=== PATIENT | female | born 1945 | race Caucasian/White ===

== ENCOUNTER 2017-04-23 17:54 | Emergency (ER) | payer MEDICARE, OTHER ==
[2017-04-23] MEDS ORDERED: Ketorolac 60 MG/2 ML SDV IM ONE (18:31)
--- NOTE | 2017-04-23 18:52 | EDM.PDOC ---
ED HPI GENERAL MEDICAL PROBLEM - General Chief Complaint: ENT Problem Stated Complaint: PT HAS EARACHE Time Seen by Provider: 04/23/17 18:15 Source of Information: Reports: Patient History Limitations: Reports: No Limitations - History of Present Illness INITIAL COMMENTS - FREE TEXT/NARRATIVE: History of present illness: 72-year-old female comes in complaining of ear ache as well as pain between her upper shoulder blades. Indicates that when she walks he feels like her bones or jarring. Patient does admit that she has had a diagnosis of osteoarthritis and this could be the cause of some of the pain Review of systems: As per history of present illness and below otherwise all systems reviewed and negative. Past medical history: As per history of present illness and as reviewed below otherwise noncontributory. Surgical history: As per history of present illness and as reviewed below otherwise noncontributory. Social history: No reported history of drug or alcohol abuse. Family history: As per history of present illness and as reviewed below otherwise noncontributory. Physical exam: HEENT: Atraumatic, normocephalic, pupils reactive, negative for conjunctival pallor or scleral icterus, mucous membranes moist, bilateral ear canals excoriated and throat clear, neck supple, nontender, trachea midline. Lungs: Clear to auscultation, breath sounds equal bilaterally, chest nontender. Heart: S1S2, regular, negative for clicks, rubs, or JVD. Abdomen: Soft, nondistended, nontender. Negative for masses or hepatosplenomegaly. Negative for costovertebral tenderness. Pelvis: Stable nontender. 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: Deferred. Rectal: Deferred. Extremities: Atraumatic, negative for cords or calf pain. Neurovascular unremarkable. Neuro: Awake, alert, oriented. Cranial nerves II through XII unremarkable. Cerebellum unremarkable. Motor and sensory unremarkable throughout. Exam nonfocal. Diagnostics: [] Therapeutics: [] Impression: [Bilateral otitis externa, back pain] Plan: [Cortisporin otic drops meloxicam, Norflex] Definitive disposition and diagnosis as appropriate pending reevaluation and review of above. Bilateral Ear Pain Score (Numeric/FACES): 7 - Related Data Allergies Allergy/AdvReac Type Severity Reaction Status Date / Time No Known Allergies Allergy Verified 04/23/17 18:21 Home Meds: Home Meds Hydrocort/Neomycin/Polymyxin B [Cortisporin Otic Soln] 10 ml .XX Q4H #1 bottle 04/23/17 [Rx] Levothyroxine 75 mcg PO ACBREAKFAST 04/23/17 [History] Lisinopril [Lisinopril] 10 mg PO DAILY 04/23/17 [History] Meloxicam 7.5 mg PO BID #30 tablet 04/23/17 [Rx] Orphenadrine [Norflex] 100 mg PO BID #28 tab.er 04/23/17 [Rx] atorvaSTATin [Lipitor] 10 mg PO DAILY 04/23/17 [History] buPROPion HCl [buPROPion HCl ER] 200 mg PO DAILY 04/23/17 [History] Past Medical History HEENT History: Reports: Impaired Vision, Otitis Media Cardiovascular History: Reports: High Cholesterol, Hypertension [employer] History: Reports: Musculoskeletal History: Reports: Fibromyalgia Endocrine/Metabolic History: Reports: Hypothyroidism Social & Family History - Family History Family Medical History: Noncontributory - Tobacco Use Smoking Status *Q: Never Smoker - Recreational Drug Use Recreational Drug Use: No ED ROS ENT - Review of Systems Review Of Systems: See Below (See history of present illness) ED EXAM, ENT - Physical Exam Exam: See Below (See history of present illness) Course - Vital Signs Last Recorded V/S: Last Vital Signs Temp 37.2 C 04/23/17 18:23 Pulse 92 04/23/17 18:23 Resp 18 04/23/17 18:23 BP 143/70 H 04/23/17 18:23 Pulse Ox 95 04/23/17 18:23 - Orders/Labs/Meds Orders: Active Orders 24 hr Category Date Time Status Orphenadrine [Norflex] Med 04/23/17 18:45 Ordered 60 mg IM Q12H Medication Orders Orphenadrine Citrate (Norflex) 60 mg IM Q12H MARY Last Admin: 04/23/17 18:41 Dose: 60 mg Meds: Medications Generic Name Dose Route Start Last Admin Trade Name Freq PRN Reason Stop Dose Admin Orphenadrine Citrate 60 mg 04/23/17 18:45 04/23/17 18:41 Norflex IM 60 mg Q12H MARY Administration Discontinued Medications Generic Name Dose Route Start Last Admin Trade Name Freq PRN Reason Stop Dose Admin Ketorolac Tromethamine 60 mg 04/23/17 18:31 04/23/17 18:40 Toradol IM 04/23/17 18:32 60 mg ONETIME ONE Administration Departure - Departure Time of Disposition: 18:51 Disposition: Home, Self-Care 01 Condition: Good Clinical Impression: Otitis externa, Back pain - Discharge Information Prescriptions: Hydrocort/Neomycin/Polymyxin B [Cortisporin Otic Soln] 10 ml .XX Q4H #1 bottle Meloxicam 7.5 mg PO BID #30 tablet Orphenadrine [Norflex] 100 mg PO BID #28 tab.er Forms: ED Department Discharge Additional Instructions: The following information is given to patients seen in the emergency department who are being discharged to home. This information is to outline your options for follow-up care. We provide all patients seen in our emergency department with a follow-up referral. The need for follow-up, as well as the timing and circumstances, are variable depending upon the specifics of your emergency department visit. If you don't have a primary care physician on staff, we will provide you with a referral. We always advise you to contact your personal physician following an emergency department visit to inform them of the circumstance of the visit and for follow-up with them and/or the need for any referrals to a consulting specialist. The emergency department will also refer you to a specialist when appropriate. This referral assures that you have the opportunity for follow-up care with a specialist. All of these measure are taken in an effort to provide you with optimal care, which includes your follow-up. Under all circumstances we always encourage you to contact your private physician who remains a resource for coordinating your care. When calling for follow-up care, please make the office aware that this follow-up is from your recent emergency room visit. If for any reason you are refused follow-up, please contact the [facility] Emergency Department at and asked to speak to the emergency department charge nurse. Take medication as directed Follow-up with PCP in 1-2 days Return to ED as needed as discussed - My Orders Last 24 Hours: My Active Orders 04/23/17 18:45 Orphenadrine [Norflex] 60 mg IM Q12H - Assessment/Plan Last 24 Hours: My Active Orders 04/23/17 18:45 Orphenadrine [Norflex] 60 mg IM Q12H
[2017-04-23 19:12] VITALS: BP 113/60
== END 2017-04-23 19:11 | disposition home or self-care (01) ==
LOC: MW.ED 17:54
DX: H60.93 Unspecified otitis externa, bilateral (principal); M54.9 Dorsalgia, unspecified; I10 Essential (primary) hypertension; E78.00 Pure hypercholesterolemia, unspecified; E03.9 Hypothyroidism, unspecified; Z79.899 Other long term (current) drug therapy
CPT/HCPCS: 96372; 99283; J1885; J2360; 99282

== ENCOUNTER 2017-06-16 12:40 | Emergency (ER) | payer MEDICARE, OTHER ==
[2017-06-16] MEDS ORDERED: Sodium Chloride 0.9% 2.5 ML Syringe FLUSH PRN (12:53)
[2017-06-16] MEDS ORDERED: Sodium Chloride 0.9% 10 ML Syringe FLUSH PRN (12:53)
[2017-06-16] MEDS ORDERED: Aspirin 81 MG Tab.Chew PO ONE (12:54)
[2017-06-16] MEDS ORDERED: Nitroglycerin 2% Oint 1 GM UD Packet TOP ONE (12:55)
--- NOTE | 2017-06-16 14:23 | CR ---
EXAMINATION: Portable chest radiograph. HISTORY: Chest pain. FINDINGS: The trachea is midline. The cardiomediastinal silhouette is within normal limits. No pulmonary infilt rates, effusions or pneumothorax. Osseous structures appear unremarkable. IMPRESSION: No acute cardiopulmonary process.
--- NOTE | 2017-06-16 14:48 | EDM.PDOC ---
ED HPI GENERAL MEDICAL PROBLEM - General Chief Complaint: Chest Pain Stated Complaint: CHEST PAIN Time Seen by Provider: 06/16/17 12:58 Source of Information: Reports: Patient History Limitations: Reports: No Limitations - History of Present Illness INITIAL COMMENTS - FREE TEXT/NARRATIVE: HISTORY AND PHYSICAL: History of present illness: Patient is a 72-year-old female that presents to the emergency room with complaints of midsternal chest pain that lasted several minutes prior to arrival. Patient points to midsternal chest and the area of pain. Pain does not radiate anywhere, denies any shortness of breath, diaphoresis, or headache. 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 Upon arrival patient has no chest pain and is asymptomatic. Reports that she has a paint formulator in [place] with the most recent visit being approximately a year ago for an echocardiogram. She reports this visit was due to a "leaky valve" and was this result is normal and to follow-up later this year for reevaluation. Denies any past history of AL or stent placement. Past medical history of hypertension, hypothyroidism and anxiety. 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 States "I feel like this could be just anxiety and worrying too much". Review of systems: As per history of present illness and below otherwise all systems reviewed and negative. Past medical history: As per history of present illness and as reviewed below otherwise noncontributory. Surgical history: As per history of present illness and as reviewed below otherwise noncontributory. Social history: No reported history of drug or alcohol abuse. Family history: As per history of present illness and as reviewed below otherwise noncontributory. Physical exam: Gen.: Nontoxic appearing 72-year-old female. Able to speak in full sentences without shortness of breath. Answers questions appropriately. Alert and oriented 3 HEENT: Atraumatic, normocephalic, pupils reactive, negative for conjunctival pallor or scleral icterus, mucous membranes moist, throat clear, neck supple, nontender, trachea midline. Lungs: Clear to auscultation, breath sounds equal bilaterally, chest nontender. Heart: S1S2, regular, negative for clicks, rubs, or JVD. Abdomen: Soft, nondistended, nontender. Negative for masses or hepatosplenomegaly. Negative for costovertebral tenderness. Pelvis: Stable nontender. 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: Deferred. Rectal: Deferred. Extremities: Atraumatic, negative for cords or calf pain. Neurovascular unremarkable. Neuro: Awake, alert, oriented. Cranial nerves II through XII unremarkable. Cerebellum unremarkable. Motor and sensory unremarkable throughout. Exam nonfocal. 1440- Dr. Hernandez has agreed to admit for observation with telemetry. Patient is agreeable to admission. 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 Chest pain Definitive disposition and diagnosis as appropriate pending reevaluation and review of above. Onset: Today Onset Date: 06/16/17 Location: Reports: Chest (Currently pain-free) Improves with: Reports: None Worsens with: Reports: None Associated Symptoms: Reports: No Other Symptoms Middle Chest Pain Score (Numeric/FACES): 2 - Related Data Allergies Allergy/AdvReac Type Severity Reaction Status Date / Time No Known Allergies Allergy Verified 06/16/17 12:50 Home Meds: Home Meds Hydrocort/Neomycin/Polymyxin B [Cortisporin Otic Soln] 10 ml .XX Q4H #1 bottle 04/23/17 [Rx] Levothyroxine 75 mcg PO ACBREAKFAST 04/23/17 [History] Lisinopril [Lisinopril] 10 mg PO DAILY 04/23/17 [History] buPROPion HCl [buPROPion HCl ER] 200 mg PO DAILY 04/23/17 [History] atorvaSTATin Calcium [Atorvastatin Calcium] 20 mg PO DAILY 06/16/17 [History] Past Medical History HEENT History: Reports: Impaired Vision, Otitis Media Cardiovascular History: Reports: High Cholesterol, Hypertension [employer] History: Reports: Musculoskeletal History: Reports: Fibromyalgia Endocrine/Metabolic History: Reports: Hypothyroidism Social & Family History - Family History Family Medical History: Noncontributory - Tobacco Use Smoking Status *Q: Never Smoker - Caffeine Use Caffeine Use: Reports: Soda - Recreational Drug Use Recreational Drug Use: No ED ROS GENERAL - Review of Systems Review Of Systems: See Below ED EXAM, GENERAL - Physical Exam Exam: See Below (See dictation) EKG INTERPRETATION EKG Date: 06/16/17 Rhythm: NSR Comparison: NA - No Prior EKG Course - Vital Signs Last Recorded V/S: Last Vital Signs Temp 36.2 C 06/16/17 12:45 Pulse 99 06/16/17 14:31 Resp 16 06/16/17 13:30 BP 140/81 06/16/17 13:30 Pulse Ox 96 06/16/17 13:30 - Orders/Labs/Meds Orders: Active Orders 24 hr Category Date Time Status Patient Status [ADT] Stat ADT 06/16/17 14:40 Ordered Cardiac Monitoring [RC] . DIRECTED Care 06/16/17 12:53 Active EKG Documentation Completion [RC] STAT Care 06/16/17 12:53 Active Oxygen Therapy, ED [RC] ASDIRECTED Care 06/16/17 12:53 Active Sodium Chloride 0.9% [Saline Flush] Med 06/16/17 12:53 Active 10 ml FLUSH ASDIRECTED PRN Sodium Chloride 0.9% [Saline Flush] Med 06/16/17 12:53 Active 2.5 ml FLUSH ASDIRECTED PRN Saline Lock Insert [OM.PC] Stat Oth 06/16/17 12:53 Ordered Medication Orders Sodium Chloride (Saline Flush) 10 ml FLUSH ASDIRECTED PRN PRN Reason: Keep Vein Open Last Admin: 06/16/17 13:13 Dose: 10 ml Sodium Chloride (Saline Flush) 2.5 ml FLUSH ASDIRECTED PRN PRN Reason: Keep Vein Open Last Admin: 06/16/17 13:50 Dose: 2.5 ml Labs: Laboratory Tests 06/16/17 06/16/17 06/16/17 Range/Units 13:06 13:06 13:06 WBC 7.01 (4.0-11.0) K/uL RBC 4.29 L (4.30-5.90) M/uL Hgb 12.6 (12.0-16.0) g/dL Hct 38.2 (36.0-46.0) % MCV 89.0 (80.0-98.0) fL MCH 29.4 (27.0-32.0) pg MCHC 33.0 (31.0-37.0) g/dL RDW Std Deviation 45.5 (28.0-62.0) fl RDW Coeff of Chitra 14 (11.0-15.0) % Plt Count 210 (150-400) K/uL MPV 9.00 (7.40-12.00) fL Neut % (Auto) 60.4 (48.0-80.0) % Lymph % (Auto) 27.0 (16.0-40.0) % [place] % (Auto) 7.4 (0.0-15.0) % Eos % (Auto) 4.9 (0.0-7.0) % Baso % (Auto) 0.3 (0.0-1.5) % Neut # (Auto) 4.2 (1.4-5.7) K/uL Lymph # (Auto) 1.9 (0.6-2.4) K/uL [place] # (Auto) 0.5 (0.0-0.8) K/uL Eos # (Auto) 0.3 (0.0-0.7) K/uL Baso # (Auto) 0.0 (0.0-0.1) K/uL Nucleated RBC % 0.0 /100WBC Nucleated RBCs # 0 K/uL Sodium 141 (136-146) mmol/L Potassium 4.3 (3.5-5.1) mmol/L Chloride 109 (98-110) mmol/L Carbon Dioxide 24 (21-31) mmol/L BUN 21 (6.0-23.0) mg/dL Creatinine 1.1 (0.6-1.5) mg/dL Est Cr Clr Drug Dosing 39.92 mL/min Estimated GFR (MDRD) 48.8 ml/min Glucose 91 (60-110) mg/dL Calcium 9.6 (8.8-10.8) mg/dL Total Bilirubin 0.6 (0.1-1.5) mg/dL AST 17 (5-40) IU/L ALT 20 (8-54) IU/L Alkaline Phosphatase 98 (40-150) Troponin I < 0.10 (0.0-0.29) NG/ML Total Protein 7.3 (6.0-8.0) g/dL Albumin 4.1 (3.4-4.8) g/dL Globulin 3.2 (2.0-3.5) g/dL Albumin/Globulin Ratio 1.3 (1.3-2.8) TSH 3rd Generation 0.80 (0.47-5.0) uIU/mL Meds: Medications Generic Name Dose Route Start Last Admin Trade Name Freq PRN Reason Stop Dose Admin Sodium Chloride 10 ml 06/16/17 12:53 06/16/17 13:13 Saline Flush FLUSH 10 ml ASDIRECTED PRN Administration Keep Vein Open Sodium Chloride 2.5 ml 06/16/17 12:53 06/16/17 13:50 Saline Flush FLUSH 2.5 ml ASDIRECTED PRN Administration Keep Vein Open Discontinued Medications Generic Name Dose Route Start Last Admin Trade Name Freq PRN Reason Stop Dose Admin Aspirin 324 mg 06/16/17 12:54 06/16/17 13:11 Aspirin PO 06/16/17 12:55 324 mg ONETIME ONE Administration Nitroglycerin 1 gm 06/16/17 12:55 06/16/17 13:13 Nitro-Bid 2% TOP 06/16/17 12:56 1 gm ONETIME ONE Administration Departure - Departure Time of Disposition: 14:49 Disposition: Refer to Observation Condition: Good Clinical Impression: Chest pain Qualifiers: Chest pain type: unspecified Qualified Code(s): R07.9 - Chest pain, unspecified Referrals: PCP,None [Primary Care Provider] - Forms: ED Department Discharge - My Orders Last 24 Hours: My Active Orders 06/16/17 12:53 Cardiac Monitoring [RC] . DIRECTED EKG Documentation Completion [RC] STAT Oxygen Therapy, ED [RC] ASDIRECTED Sodium Chloride 0.9% [Saline Flush] 10 ml FLUSH ASDIRECTED PRN Sodium Chloride 0.9% [Saline Flush] 2.5 ml FLUSH ASDIRECTED PRN Saline Lock Insert [OM.PC] Stat 06/16/17 14:40 Patient Status [ADT] Stat - Assessment/Plan Last 24 Hours: My Active Orders 06/16/17 12:53 Cardiac Monitoring [RC] . DIRECTED EKG Documentation Completion [RC] STAT Oxygen Therapy, ED [RC] ASDIRECTED Sodium Chloride 0.9% [Saline Flush] 10 ml FLUSH ASDIRECTED PRN Sodium Chloride 0.9% [Saline Flush] 2.5 ml FLUSH ASDIRECTED PRN Saline Lock Insert [OM.PC] Stat 06/16/17 14:40 Patient Status [ADT] Stat
[2017-06-16 14:50] VITALS: BP 120/97
== END 2017-06-16 15:20 | disposition left against medical advice (07) ==
LOC: MW.ED 12:40
DX: R07.2 Precordial pain (principal); I10 Essential (primary) hypertension; E78.00 Pure hypercholesterolemia, unspecified; E03.9 Hypothyroidism, unspecified; Z79.899 Other long term (current) drug therapy
CPT/HCPCS: 36415; 71010; 80053; 84443; 84484; 85025; 93005; 99285; A9270; 99284

== ENCOUNTER 2017-11-29 00:34 | Emergency (ER) | payer MEDICARE, OTHER ==
[2017-11-29] MEDS ORDERED: Ketorolac 60 MG/2 ML SDV IM ONE (00:51)
--- NOTE | 2017-11-29 00:54 | EDM.PDOC ---
ED HPI GENERAL MEDICAL PROBLEM - General Chief Complaint: General Stated Complaint: BODY ACHES, SORE THROAT, FLU SYMPTOMS Time Seen by Provider: 11/29/17 00:45 - History of Present Illness INITIAL COMMENTS - FREE TEXT/NARRATIVE: HISTORY AND PHYSICAL: History of present illness: The patient is a 72-year-old female with a history of hypertension hypercholesterolemia and thyroid disease who follows at [facility] with Dr. Kade Parker and presents with a several day history of low-grade fever harsh cough occasionally productive of phlegm sore throat diffuse body aches and malaise. The patient has not had abdominal pain vomiting or diarrhea and she's been taking fluids. Patient has chronic issues with her left ear and has some pain there has been no drainage. The patient that she did not get her flu shot this year and she is around her grandchildren who have had illnesses on and off over the last several days to weeks. The patient has used [id number] ibuprofen. The patient is not a smoker and has no known pulmonary disease. Her temperatures at home have been very low-grade. She also says that she is having nasal drainage and congestion and she uses a Netti pot for that Review of systems: As per history of present illness and below otherwise all systems reviewed and negative. Past medical history: As per history of present illness and as reviewed below otherwise noncontributory. Surgical history: As per history of present illness and as reviewed below otherwise noncontributory. Social history: No reported history of drug or alcohol abuse. Family history: As per history of present illness and as reviewed below otherwise noncontributory. Physical exam: Gen.: Well-developed well-nourished female who is speaking without breathlessness and does have a harsh cough in the ER. HEENT: Atraumatic, normocephalic, pupils reactive, negative for conjunctival pallor or scleral icterus, mucous membranes moist, throat clear and there is no oropharyngeal erythema, there is no cervical adenopathy or nuchal rigidity,, neck supple, nontender, trachea midline. TMs are normal bilaterally with good light reflexes but the left TM does have an increased area of vascularity without bulging or fluid. Lungs: Clear to auscultation, breath sounds equal bilaterally, chest nontender. There is no work or breathing stridor or wheezing Heart: S1S2, regular rate and rhythm no overt murmurs Abdomen: Soft, nondistended, nontender. NABS. Pelvis: Deferred 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: Deferred. Rectal: Deferred. Extremities: Atraumatic, negative for cords or calf pain. Neurovascular unremarkable. Neuro: Awake, alert, oriented. Cranial nerves II through XII unremarkable. Cerebellum unremarkable. Motor and sensory unremarkable throughout. Exam nonfocal. Diagnostics: CBC CMP rapid strep influenza lactic acid chest x-ray Therapeutics: Toradol I discussed all testing results with the patient and have advised over-the- counter Tylenol and ibuprofen for body aches and fevers, pushing hydration, over -the-counter Benadryl/Claritin/Kimi for sinus congestion and I will prescribe Phenergan with codeine for cough. I will also give her a Z-Keegan both via [employer] I have also stressed the importance of follow-up with her provider in the clinic, [facility]. Impression: Upper respiratory tract infection/pharyngitis Definitive disposition and diagnosis as appropriate pending reevaluation and review of above. general Pain Score (Numeric/FACES): 9 - Related Data Allergies Allergy/AdvReac Type Severity Reaction Status Date / Time No Known Allergies Allergy Verified 11/29/17 00:47 Home Meds: Home Meds Hydrocort/Neomycin/Polymyxin B [Cortisporin Otic Soln] 10 ml .XX Q4H #1 bottle 04/23/17 [Rx] Levothyroxine 75 mcg PO ACBREAKFAST 04/23/17 [History] Lisinopril [Lisinopril] 10 mg PO DAILY 04/23/17 [History] buPROPion HCl [buPROPion HCl ER] 200 mg PO DAILY 04/23/17 [History] atorvaSTATin Calcium [Atorvastatin Calcium] 20 mg PO DAILY 06/16/17 [History] Past Medical History HEENT History: Reports: Impaired Vision, Otitis Media Cardiovascular History: Reports: High Cholesterol, 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 ED EXAM, GENERAL - Physical Exam Exam: See Below (See dictation) Course - Vital Signs Last Recorded V/S: Last Vital Signs Temp 37.4 C 11/29/17 00:47 Pulse 95 11/29/17 00:47 Resp 16 11/29/17 00:47 BP 108/78 11/29/17 00:47 Pulse Ox 939 H 11/29/17 00:47 - Orders/Labs/Meds Orders: Active Orders 24 hr Category Date Time Status Chest 2V [CR] Stat Exams 11/29/17 00:51 Taken CULTURE STREP A CONFIRMATION [RM] Stat Lab 11/29/17 00:55 Results STREP SCRN A RAPID W CULT CONF [RM] Stat Lab 11/29/17 00:55 Results Labs: Laboratory Tests 11/29/17 11/29/17 11/29/17 Range/Units 00:55 00:55 00:55 WBC 4.17 (4.0-11.0) K/uL RBC 4.02 L (4.30-5.90) M/uL Hgb 11.9 L (12.0-16.0) g/dL Hct 36.6 (36.0-46.0) % MCV 91.0 (80.0-98.0) fL MCH 29.6 (27.0-32.0) pg MCHC 32.5 (31.0-37.0) g/dL RDW Std Deviation 43.5 (28.0-62.0) fl RDW Coeff of Chitra 13 (11.0-15.0) % Plt Count 182 (150-400) K/uL MPV 8.70 (7.40-12.00) fL Neut % (Auto) 70.3 (48.0-80.0) % Lymph % (Auto) 15.6 L (16.0-40.0) % Schuyler % (Auto) 9.6 (0.0-15.0) % Eos % (Auto) 3.8 (0.0-7.0) % Baso % (Auto) 0.7 (0.0-1.5) % Neut # (Auto) 2.9 (1.4-5.7) K/uL Lymph # (Auto) 0.7 (0.6-2.4) K/uL Schuyler # (Auto) 0.4 (0.0-0.8) K/uL Eos # (Auto) 0.2 (0.0-0.7) K/uL Baso # (Auto) 0.0 (0.0-0.1) K/uL Lactate 0.5 (0.20-2.00) mmol/L Sodium 140 (136-146) mmol/L Potassium 4.0 (3.5-5.1) mmol/L Chloride 110 (98-110) mmol/L Carbon Dioxide 21 (21-31) mmol/L BUN 19 (6.0-23.0) mg/dL Creatinine 1.0 (0.6-1.5) mg/dL Est Cr Clr Drug Dosing 42.06 mL/min Estimated GFR (MDRD) 54.5 ml/min Glucose 84 (60-110) mg/dL Calcium 9.5 (8.8-10.8) mg/dL Total Bilirubin 0.3 (0.1-1.5) mg/dL AST 26 (5-40) IU/L ALT 24 (8-54) IU/L Alkaline Phosphatase 92 (40-150) Total Protein 6.8 (6.0-8.0) g/dL Albumin 3.9 (3.4-4.8) g/dL Globulin 2.9 (2.0-3.5) g/dL Albumin/Globulin Ratio 1.3 (1.3-2.8) Meds: Medications Discontinued Medications Generic Name Dose Route Start Last Admin Trade Name Freq PRN Reason Stop Dose Admin Ketorolac Tromethamine 60 mg 11/29/17 00:51 11/29/17 00:55 Toradol IM 11/29/17 00:52 60 mg ONETIME ONE Administration Departure - Departure Time of Disposition: 02:25 Disposition: Home, Self-Care 01 Condition: Good Clinical Impression: URI with cough and congestion - Discharge Information Referrals: Kade Parker MD [Primary Care Provider] - Forms: ED Department Discharge Additional Instructions: The following information is given to patients seen in the emergency department who are being discharged to home. This information is to outline your options for follow-up care. We provide all patients seen in our emergency department with a follow-up referral. The need for follow-up, as well as the timing and circumstances, are variable depending upon the specifics of your emergency department visit. If you don't have a primary care physician on staff, we will provide you with a referral. We always advise you to contact your personal physician following an emergency department visit to inform them of the circumstance of the visit and for follow-up with them and/or the need for any referrals to a consulting specialist. The emergency department will also refer you to a specialist when appropriate. This referral assures that you have the opportunity for followup care with a specialist. All of these measure are taken in an effort to provide you with optimal care, which includes your followup. Under all circumstances we always encourage you to contact your private physician who remains a resource for coordinating your care. When calling for followup care, please make the office aware that this follow-up is from your recent emergency room visit. If for any reason you are refused follow-up, please contact the [facility] emergency department at and ask to speak to the emergency department charge nurse. [address] [place] [address] [facility] Primary care- Internal Medicine [facility] [address] These push hydration rest and use [id number] Tylenol/ibuprofen for fevers and body aches. Please use the cough medicine as prescribed but only when you' re able to rest. Do not take the Phenergan with codeine and leave you're home. Take Z-Keegan as directed. He may also use [id number] Claritin/Benadryl/ Kimi to help with her congestion. Use cool mist humidifier at sleep times and return to ER as needed and as discussed. Please call your provider on Thursday for a follow-up appointment and reevaluation of this care plan - My Orders Last 24 Hours: My Active Orders 11/29/17 00:51 Chest 2V [CR] Stat 11/29/17 00:55 CULTURE STREP A CONFIRMATION [RM] Stat STREP SCRN A RAPID W CULT CONF [RM] Stat - Assessment/Plan Last 24 Hours: My Active Orders 11/29/17 00:51 Chest 2V [CR] Stat 11/29/17 00:55 CULTURE STREP A CONFIRMATION [RM] Stat STREP SCRN A RAPID W CULT CONF [RM] Stat
[2017-11-29 02:45] VITALS: BP 128/71
--- NOTE | 2017-11-30 13:54 | CR ---
EXAM DATE: 11/29/17 PATIENT'S AGE: 72 Patient: EWA FRANCES Facility: [place], [place] Site . Site : 1945 Study: XRay Chest [id number] 1:51:56 AM Ordering Physician: Carissa Decker Final Report: INDICATION: PAIN/SOB TECHNIQUE: Chest 2 views COMPARISON: June 16, 2017 FINDINGS: Cardiovascular and mediastinum: Heart size and vasculature are normal in caliber and appearance. Mediastinum is within normal limits. Lungs and pleural spaces: Stable scarring along the left lung base. Eventration of the right hemidiaphragm. No sign of pleural effusion. No pneumothorax. Bones and soft tissues: No significant findings. IMPRESSION: No acute cardiopulmonary disease Dictated by Adelso Rea MD @ 11/29/2017 1:54:25 AM Dictated by: Adelso Rea MD @ 11/29/2017 01:56:25 (Electronic Signature) Report Signed by Proxy. ELLIS HOSPITALChristianne
== END 2017-11-29 02:35 | disposition home or self-care (01) ==
LOC: MW.ED 00:34
DX: J06.9 Acute upper respiratory infection, unspecified (principal); I10 Essential (primary) hypertension; E78.00 Pure hypercholesterolemia, unspecified; E03.9 Hypothyroidism, unspecified; Z79.899 Other long term (current) drug therapy
CPT/HCPCS: 36415; 71046; 80053; 83605; 85025; 87081; 87804; 87880; 96372; 99283; J1885

== ENCOUNTER 2017-12-23 12:51 | Emergency (ER) | payer MEDICARE, OTHER ==
--- NOTE | 2017-12-23 15:01 | EDM.PDOC ---
ED HPI GENERAL MEDICAL PROBLEM - General Chief Complaint: General Stated Complaint: BURNING PAIN ALL OVER Time Seen by Provider: 12/23/17 12:51 Source of Information: Reports: Patient History Limitations: Reports: No Limitations - History of Present Illness INITIAL COMMENTS - FREE TEXT/NARRATIVE: HISTORY AND PHYSICAL: History of present illness: [Pt comes to the ER c/o a sensation of warmth shooting through her entire body, from her head to her toes. She has been ill lately with a cough and viral illness, but woke up feeling worse today. Denies any pain. No chest pain, SOA, dyspnea. No abd pain, nausea/vomiting. No body aches or joint pain. No numbness , tingling or weakness. No episodes of confusion or disorientation. No fever or chills. Always has ear pain, no worse today than usual. No purulent nasal discharge or sore throat. Has not been on any antibiotics recently. Has not taken any medications for her symptoms. Has no other complaints or concerns today. Reports a history of frequent ear infections.] Review of systems: As per history of present illness and below otherwise all systems reviewed and negative. Past medical history: As per history of present illness and as reviewed below otherwise noncontributory. Surgical history: As per history of present illness and as reviewed below otherwise noncontributory. Social history: No reported history of drug or alcohol abuse. Family history: As per history of present illness and as reviewed below otherwise noncontributory. Physical exam: HEENT: Atraumatic, normocephalic. R TM is injected and brightly erythematous. Landmarks visualized. L TM is unremarkable. Nares are patent. Oral mucous membranes are pink and moist. neck supple, nontender, no lymphadenopathy Lungs: Clear to auscultation, breath sounds equal bilaterally, chest nontender. No wheezing crackles or rales. Heart: S1S2, regular rate and rhythm., negative for clicks, rubs, or JVD. Abdomen: Bowel sounds are normoactive throughout. Soft, nondistended, nontender. Negative for masses guarding or rebound.. Negative for costovertebral tenderness. Pelvis: Stable nontender. 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: Deferred. Rectal: Deferred. Extremities: Atraumatic, negative for cords or calf pain. No swelling or cyanosis to feet or lower legs. Neurovascular unremarkable. Neuro: Awake, alert, oriented. Motor and sensory unremarkable throughout. Exam nonfocal. Diagnostics: [CBC, CMP, UA w/ micro, EKG] Impression: [Acute otitis media] Plan: [An EKG was completed due to patient's vague complaints. Normal sinus rhythm on EKG, with a rate of 96. UA is unremarkable. Hemoglobin is stable at 11.3. No other abnormalities appreciated on labs. Only abnormal finding is patient's ear infection. Will treat with antibiotics and have her follow-up with a PCP. Rx written for amoxicillin 875 mg (#20) sig one by mouth twice a day tat 0 refills. Strict return precautions are reviewed. She is in agreement with today' s plan. All of her questions are answered and concerns are addressed.] Definitive disposition and diagnosis as appropriate pending reevaluation and review of above. Head Pain Score (Numeric/FACES): 5 - Related Data Allergies Allergy/AdvReac Type Severity Reaction Status Date / Time No Known Allergies Allergy Verified 12/23/17 13:01 Home Meds: Home Meds Levothyroxine 75 mcg PO ACBREAKFAST 04/23/17 [History] Lisinopril [Lisinopril] 10 mg PO DAILY 04/23/17 [History] buPROPion HCl [buPROPion HCl ER] 200 mg PO DAILY 04/23/17 [History] atorvaSTATin Calcium [Atorvastatin Calcium] 20 mg PO DAILY 06/16/17 [History] Past Medical History HEENT History: Reports: Impaired Vision, Otitis Media Cardiovascular History: Reports: High Cholesterol, Hypertension Respiratory History: Reports: None Gastrointestinal History: Reports: None 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: Musculoskeletal History: Reports: Fibromyalgia Neurological History: Reports: None Endocrine/Metabolic History: Reports: Hypothyroidism Dermatologic History: Reports: None - Infectious Disease History Infectious Disease History: Reports: Chicken Pox, Measles, Mumps Social & Family History - Family History Family Medical History: Noncontributory - Tobacco Use Smoking Status *Q: Never Smoker - Caffeine Use Caffeine Use: Reports: Soda Caffeine Use Comment: 4-5 cans a day - Recreational Drug Use Recreational Drug Use: No ED ROS GENERAL - Review of Systems Review Of Systems: ROS reveals no pertinent complaints other than HPI. ED EXAM, GENERAL - Physical Exam Exam: See Below Course - Vital Signs Last Recorded V/S: Last Vital Signs Temp 98.8 F 12/23/17 15:10 Pulse 86 12/23/17 15:10 Resp 18 12/23/17 15:10 BP 143/83 H 12/23/17 15:10 Pulse Ox 97 12/23/17 15:10 - Orders/Labs/Meds Orders: Active Orders 24 hr Category Date Time Status EKG Documentation Completion [RC] STAT Care 12/23/17 13:00 Active Labs: Laboratory Tests 12/23/17 12/23/17 12/23/17 Range/Units 13:32 13:32 13:53 WBC 8.69 (4.0-11.0) K/uL RBC 3.93 L (4.30-5.90) M/uL Hgb 11.3 L (12.0-16.0) g/dL Hct 34.7 L (36.0-46.0) % MCV 88.3 (80.0-98.0) fL MCH 28.8 (27.0-32.0) pg MCHC 32.6 (31.0-37.0) g/dL RDW Std Deviation 42.6 (28.0-62.0) fl RDW Coeff of Chitra 13 (11.0-15.0) % Plt Count 242 (150-400) K/uL MPV 8.80 (7.40-12.00) fL Neut % (Auto) 70.4 (48.0-80.0) % Lymph % (Auto) 19.7 (16.0-40.0) % Winston % (Auto) 7.5 (0.0-15.0) % Eos % (Auto) 2.2 (0.0-7.0) % Baso % (Auto) 0.2 (0.0-1.5) % Neut # (Auto) 6.1 H (1.4-5.7) K/uL Lymph # (Auto) 1.7 (0.6-2.4) K/uL Winston # (Auto) 0.7 (0.0-0.8) K/uL Eos # (Auto) 0.2 (0.0-0.7) K/uL Baso # (Auto) 0.0 (0.0-0.1) K/uL Nucleated RBC % 0.0 /100WBC Nucleated RBCs # 0 K/uL Sodium 139 (136-145) mmol/L Potassium 3.8 (3.5-5.1) mmol/L Chloride 104 (98-107) mmol/L Carbon Dioxide 22.7 (21.0-32.0) mmol/L BUN 16 (7.0-18.0) mg/dL Creatinine 1.1 H (0.6-1.0) mg/dL Est Cr Clr Drug Dosing 39.92 mL/min Estimated GFR (MDRD) 48.8 ml/min Glucose 141 H (74-106) mg/dL Calcium 8.5 (8.5-10.1) mg/dL Total Bilirubin 0.4 (0.2-1.0) mg/dL AST 20 (15-37) U/L ALT 25 (14-63) U/L Alkaline Phosphatase 104 (46-116) U/L Total Protein 6.4 (6.4-8.2) g/dL Albumin 3.1 L (3.4-5.0) g/dL Globulin 3.3 (2.0-3.5) g/dL Albumin/Globulin Ratio 0.9 L (1.3-2.8) Urine Color YELLOW Urine Appearance CLEAR Urine pH 7.0 (5.0-8.0) Ur Specific Rugby 1.015 (1.001-1.035) Urine Protein NEGATIVE (NEGATIVE) mg/dL Urine Glucose (UA) NEGATIVE (NEGATIVE) mg/dL Urine Ketones NEGATIVE (NEGATIVE) mg/dL Urine Occult Blood NEGATIVE (NEGATIVE) Urine Nitrite NEGATIVE (NEGATIVE) Urine Bilirubin NEGATIVE (NEGATIVE) Urine Urobilinogen 0.2 (<2.0) EU/dL Ur Leukocyte Esterase SMALL (NEGATIVE) Urine RBC 0-1 (0-2/HPF) Urine WBC 1-3 (0-5/HPF) Ur Epithelial Cells FEW (NONE-FEW) Urine Bacteria FEW (NEGATIVE) Urine Mucus LIGHT (NONE-MOD) Departure - Departure Time of Disposition: 15:00 Disposition: Home, Self-Care 01 Condition: Good Clinical Impression: Otitis media - Discharge Information Instructions: Otitis Media, Adult, [id number] Referrals: PCP,None [Primary Care Provider] - Forms: ED Department Discharge Additional Instructions: The following information is given to patients seen in the emergency department who are being discharged to home. This information is to outline your options for follow-up care. We provide all patients seen in our emergency department with a follow-up referral. The need for follow-up, as well as the timing and circumstances, are variable depending upon the specifics of your emergency department visit. If you don't have a primary care physician on staff, we will provide you with a referral. We always advise you to contact your personal physician following an emergency department visit to inform them of the circumstance of the visit and for follow-up with them and/or the need for any referrals to a consulting specialist. The emergency department will also refer you to a specialist when appropriate. This referral assures that you have the opportunity for follow-up care with a specialist. All of these measure are taken in an effort to provide you with optimal care, which includes your follow-up. Under all circumstances we always encourage you to contact your private physician who remains a resource for coordinating your care. When calling for follow-up care, please make the office aware that this follow-up is from your recent emergency room visit. If for any reason you are refused follow-up, please contact the [facility] emergency department at and asked to speak to the emergency department charge nurse. [facility] [address] [place] [id number] Follow-up with her local primary care provider at the clinic listed above in 48- 72 hours. Take antibiotics as prescribed. Return to ER as needed as discussed. - My Orders Last 24 Hours: My Active Orders 12/23/17 13:00 EKG Documentation Completion [RC] STAT - Assessment/Plan Last 24 Hours: My Active Orders 12/23/17 13:00 EKG Documentation Completion [RC] STAT
[2017-12-23 15:11] VITALS: BP 143/83
== END 2017-12-23 15:10 | disposition home or self-care (01) ==
LOC: MW.ED 12:51
DX: H66.91 Otitis media, unspecified, right ear (principal); E78.00 Pure hypercholesterolemia, unspecified; I10 Essential (primary) hypertension; E03.9 Hypothyroidism, unspecified; Z79.899 Other long term (current) drug therapy
CPT/HCPCS: 36415; 80053; 81001; 85025; 99283; 99284-25

== ENCOUNTER 2021-08-30 09:14 | Emergency (ER) | payer MEDICARE, OTHER ==
[2021-08-30] MEDS ORDERED: Lidocaine 1% 10 ML MDV INJECT ONE (09:49)
[2021-08-30] MEDS ORDERED: Ondansetron 4 MG Tab.DIS PO ONE (09:52)
--- NOTE | 2021-08-30 09:52 | EDM.PDOC ---
ED HPI GENERAL MEDICAL PROBLEM - General Chief Complaint: Upper Extremity Injury/Pain Stated Complaint: EMS Time Seen by Provider: 08/30/21 09:18 - History of Present Illness INITIAL COMMENTS - FREE TEXT/NARRATIVE: 76-year-old female who is not on blood thinners presents with left wrist pain after mechanical fall. The patient was walking in tripped on an elevation in the sidewalk falling onto her left wrist she did not strike her head she did not lose consciousness. No fevers or chills no neck pain or stiffness patient felt well prior to the fall. Some nausea after the fall but no vomiting no abdominal pain. Patient with minimal pain in the left wrist that worsens to severe with any attempted range of motion ROS: General: No fever. Eyes: No vision problems. ENT: No sore throat. Neck: No neck stiffness. Respiratory: No shortness of breath. Cardiac: No chest pain. Gastrointestinal: + nausea, no vomiting or abdominal pain. Musculoskeletal: per HPI Neurologic: No headache. wrist Pain Score (Numeric/FACES): 3 - Related Data Allergies Allergy/AdvReac Type Severity Reaction Status Date / Time No Known Allergies Allergy Verified 08/30/21 09:29 Home Meds: Home Meds Levothyroxine 75 mcg PO ACBREAKFAST 04/23/17 [History] Lisinopril 10 mg PO DAILY 04/23/17 [History] buPROPion HCL [buPROPion HCl ER] 200 mg PO DAILY 04/23/17 [History] atorvaSTATin Calcium [Atorvastatin Calcium] 20 mg PO DAILY 06/16/17 [History] Past Medical History HEENT History: Reports: Impaired Vision, Otitis Media Cardiovascular History: Reports: High Cholesterol, Hypertension Respiratory History: Reports: None Gastrointestinal History: Reports: None 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 History: Reports: None 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: Musculoskeletal History: Reports: Fibromyalgia Neurological History: Reports: None Endocrine/Metabolic History: Reports: Hypothyroidism Dermatologic History: Reports: None - Infectious Disease History Infectious Disease History: Reports: Chicken Pox, Measles, Mumps Social & Family History - Family History Family Medical History: No Pertinent Family History - Tobacco Use Tobacco Use Status *Q: Never Tobacco User Second Hand Smoke Exposure: No - Caffeine Use Caffeine Use: Reports: Soda Caffeine Use Comment: 4-5 cans a day - Recreational Drug Use Recreational Drug Use: No Review of Systems - Review of Systems Review Of Systems: See Below ED EXAM, GENERAL - Physical Exam Exam: See Below Free Text/Narrative:: General Appearance: No acute distress, appears comfortable Skin: No rash HEENT: Normocephalic/atraumatic, sclera anicteric, mucous membranes moist Neck: Normal range of motion Chest and Lungs: Bilateral breath sounds, clear to auscultation Cardiovascular: Regular rate and rhythm Abdomen: Soft, non-tender Back: Normal Musculoskeletal: 2+ left radial pulse median radial and ulnar nerves intact in the left hand left wrist deformity consistent with fracture no focal tenderness swelling or deformity in the left elbow or the left shoulder no focal pain swelling deformity or limitation in range of motion of the right upper or bilateral lower extremities. Neurologic: Awake, alert, no obvious deficits, moving all extremities Psychiatric: Appropriate, cooperative ED TRAUMA EXTREMITY PROCEDURES - Splinting Left Upper Extremity Pre-Procedure NV Status: Normal Post-Procedure NV Status: Normal Splint Material: Fiberglass Splint Design: Volar Applied & Form Fitted By: Provider Provider Post-Splint Application NV Check: NV Status Normal Complications: No Course - Vital Signs Last Recorded V/S: Last Vital Signs Temp 97.2 F 08/30/21 09:30 Pulse 76 08/30/21 09:30 Resp 18 08/30/21 09:30 BP 147/85 H 08/30/21 09:30 Pulse Ox 98 08/30/21 09:30 - Orders/Labs/Meds Meds: Medications Discontinued Medications Generic Name Dose Route Start Last Admin Trade Name Freq PRN Reason Stop Dose Admin Lidocaine HCl 10 ml 08/30/21 09:49 08/30/21 10:21 Lidocaine 1% 10 Ml Mdv INJECT 08/30/21 09:50 Not Given ONETIME ONE Lidocaine HCl 10 ml 08/30/21 10:15 08/30/21 10:20 Lidocaine 1% 5 Ml Sdv INJECT 08/30/21 10:16 10 ml ONETIME ONE Administration Ondansetron HCl 4 mg 08/30/21 09:52 08/30/21 10:05 Ondansetron 4 Mg Tab.Dis PO 08/30/21 09:53 4 mg ONETIME ONE Administration Departure - Departure Time of Disposition: 11:36 Disposition: Home, Self-Care 01 Condition: Good Clinical Impression: Distal radius fracture, left - Discharge Information *PRESCRIPTION DRUG MONITORING PROGRAM REVIEWED*: Not Applicable *COPY OF PRESCRIPTION DRUG MONITORING REPORT IN PATIENT MARJORIE: Not Applicable Instructions: Radial Fracture, Cast or Splint Care, Adult, [id number] Forms: ED Department Discharge Additional Instructions: Dr. Duncan's office should contact you later today to help set up a follow-up visit for you. Please be sure to keep the splint dry. Keep it elevated as much as you can and ice it. Please be sure to follow-up with the orthopedic surgeon. The following information is given to patients seen in the emergency department who are being discharged to home. This information is to outline your options for follow-up care. We provide all patients seen in our emergency department with a follow-up referral. The need for follow-up, as well as the timing and circumstances, are variable depending upon the specifics of your emergency department visit. If you don't have a primary care physician on staff, we will provide you with a referral. We always advise you to contact your personal physician following an emergency department visit to inform them of the circumstance of the visit and f or follow-up with them and/or the need for any referrals to a consulting specialist. The emergency department will also refer you to a specialist when appropriate. This referral assures that you have the opportunity for follow-up care with a specialist. All of these measure are taken in an effort to provide you with optimal care, which includes your follow-up. Under all circumstances we always encourage you to contact your private physician who remains a resource for coordinating your care. When calling for follow-up care, please make the office aware that this follow-up is from your recent emergency room visit. If for any reason you are refused follow-up, please contact the [facility] Emergency Department at and asked to speak to the emergency department charge nurse. Sepsis Event Note (ED) - Evaluation Sepsis Screening Result: No Definite Risk - Focused Exam Vital Signs: Vital Signs Temp Pulse Resp BP Pulse Ox 08/30/21 09:30 97.2 F 76 18 147/85 H 98 - Assessment/Plan Assessment:: 76-year-old female presenting with likely distal radial fracture subsequently confirmed on x-ray from trauma standpoint she does not meet trauma activation criteria. Trauma was activated in the field but canceled when information was more clear. No signs of a nonmechanical fall I believe you can clinically clear the head spine chest abdomen pelvis and other extremities. After verbal consent was obtained left wrist hematoma block was done patient was placed in finger traps. Reduction patient will need orthopedic referral. 1140: Patient reduced without complication splinted and x-ray ordered. Patient discussed in full with Dr. Duncan. He will reach out to the patient via phone today to arrange f/u. Return precaution discussed and understood.
--- NOTE | 2021-08-30 10:05 | CR ---
Indication: Fall Comparison: None available. Technique: AP, Lateral, and Oblique views left wrist were obtained Findings: There is a comminuted, impacted fracture of the distal radius with marginal osteophyte formation. Degenerative changes of the radiocarpal joint are appreciated as well as severe degenerative changes of the 1st carpometacarpal joint. There is mild carpal soft tissue swelling. Impression: Comminuted, impacted fracture of the distal radius with superficial soft tissue swelling. Dictated by Toño Ortiz MD @ 08/30/2021 10:04:31 AM (Electronically Signed)
[2021-08-30 12:23] VITALS: PULSE 77
[2021-08-30 12:25] VITALS: BP 151/83
--- NOTE | 2021-08-30 12:29 | CR ---
Indication: Follow up fracture status post closed reduction Technique: Examination consists of two views of the left wrist obtained through cast Comparison: Earlier the same day at 9:22 a.m. This study is from 08/30/2021 at 11:48 a.m. Findings: Again noted is a fracture of the distal left radius. Again noted is some degree of impaction and volar angulation. There is no widening of the distal radioulnar joint. Impression: Status post casting previously described left wrist fracture Dictated by Israel Mitchell MD @ 08/30/2021 12:28:19 PM (Electronically Signed)
== END 2021-08-30 12:12 | disposition home or self-care (01) ==
LOC: MW.ED 09:14
DX: S52.502A Unspecified fracture of the lower end of left radius, initial encounter for closed fracture (principal); E78.00 Pure hypercholesterolemia, unspecified; I10 Essential (primary) hypertension; E03.9 Hypothyroidism, unspecified; Z79.899 Other long term (current) drug therapy; W01.0XXA Fall on same level from slipping, tripping and stumbling without subsequent striking against object, initial encounter; Y93.01 Activity, walking, marching and hiking; Y92.480 Sidewalk as the place of occurrence of the external cause
CPT/HCPCS: 25605; 73100; 73110; 99283; A9270

== ENCOUNTER 2023-02-02 09:23 | Emergency (ER) | payer MEDICARE | END 2023-02-02 10:11 | disposition left against medical advice (07) | LOC: MW.ED 09:23 | DX: Z53.21 Procedure and treatment not carried out due to patient leaving prior to being seen by health care provider (principal) ==